=== PATIENT | male | born 1980 | race Caucasian/White ===

== ENCOUNTER 2017-03-02 10:26 | Emergency (ER) | payer SELFPAY ==
[~2017-03-02] VITALS: Wt 75.7 kg
--- NOTE | ~2017-03-02 | EKG ---
[place], [place] ELECTROCARDIOGRAM REPORT NAME: SORAYA SINCLAIR UNIT #: [id number] ROOM: DOCTOR: EFREN CANDELARIO MD BIRTHDATE: [birth year] DOS: 03/02/2017 TIME: 10:33 a.m. Sinus tachycardia with rate 109, ST segment elevation in anterior leads V1, V2 and V3. Abnormal electrocardiogram. EFREN CANDELARIO MD CM:EKGRPT:ELECTROCARDIOGRAM REPORT [id number] 1934 EFREN CANDELARIO MD
--- NOTE | ~2017-03-02 | EKG ---
[place], [place] ELECTROCARDIOGRAM REPORT NAME: SORAYA SINCLAIR UNIT #: [id number] ROOM: DOCTOR: EFREN CANDELARIO MD BIRTHDATE: [birth year] DOS: 03/02/2017 TIME: 10:56 a.m. Sinus rhythm at rate 97 with frequent uniform PVCs, ST segment elevation noted V1, V2. Abnormal electrocardiogram suggesting acute anterior ST elevation, myocardial infarction. EFREN CANDELARIO MD CM:EKGRPT:ELECTROCARDIOGRAM REPORT [id number] 1936 EFREN CANDELARIO MD
[2017-03-02 11:01] LABS: BASO # 0.1 10*3/uL (0.0-0.1); BASO % 0.6 % (0.0-1.0); EOS # 0.4 10*3/uL (0.0-0.4); EOS % 4.3 % (1.0-4.0); HEMATOCRIT 41.1 % (42.0-52.0); HEMOGLOBIN 14.1 g/dl (14.0-18.0); LYMPH # 2.4 10*3/uL (1.3-4.4); LYMPH % 23.7 % (27.0-41.0); MEAN CELL VOLUME 92.2 fl (80.0-94.0); MEAN CORPUSCULAR HGB 31.6 pg (27.0-31.0); MEAN CORPUSCULAR HGB CONC 34.3 g/dl (33.0-37.0); MEAN PLATELET VOLUME 8.8 fl (9.6-12.3); MONO # 0.8 10*3/uL (0.1-1.0); NEUT # 6.4 10*3/uL (2.3-7.9); NEUT % 63.1 % (47.0-73.0); PLATELET COUNT AUTOMATED 334 10*3/uL (130-400); RED BLOOD COUNT 4.46 10*6/uL (4.50-5.90); RED CELL DISTRI WIDTH 12.5 % (0-14.5); WHITE BLOOD COUNT 10.1 10*3/uL (4.8-10.8)
[2017-03-02 11:11] LABS: PROTHROMBIN TIME 10.1 SECONDS (9.0-12.4)
[2017-03-02 11:19] LABS: ALBUMIN 3.9 gm/dl (3.1-4.5); ALKALINE PHOSPHATASE 94 U/L (45-117); BILIRUBIN, TOTAL 0.3 mg/dl (0.2-1.0); BUN 11 mg/dl (7-24); CARBON DIOXIDE 25 mmol/L (21-32); CHLORIDE 104 mmol/L (98-107); EST GLOM FILT AFRICAN AMERICAN > 60 ml/min; GLUCOSE 168 mg/dL (65-99); POTASSIUM 3.7 mmol/L (3.5-5.1); SGOT/AST 20 IU/L (3-35); SGPT/ALT 37 U/L (12-78); SODIUM 141 mmol/L (136-145); TOTAL PROTEIN 7.2 gm/dL (6.4-8.2)
[2017-03-02 11:21] LABS: TROPONIN I 0.267 ng/ml (<0.045)
== END 2017-03-02 12:39 | disposition short-term general hospital (02) ==
LOC: ED 10:26
PROVIDERS: Emergency Medicine
DX: I21.3 ST elevation (STEMI) myocardial infarction of unspecified site (principal); I10 Essential (primary) hypertension; F17.200 Nicotine dependence, unspecified, uncomplicated